=== PATIENT | female | born 1990 | race Caucasian/White ===

== ENCOUNTER → 2019-05-20 | Outpatient (REF) | payer OTHER ==
[2019-05-20 13:14] LABS: APPEARANCE, URINE CLEAR (CLEAR); BACTERIA, URINE AUTO NEGATIVE (NEGATIVE); BILIRUBIN, URINE AUTO NEGATIVE (NEGATIVE); BLOOD, URINE BLOOD 2+ (NEGATIVE); COLOR, URINE YELLOW (YELLOW); GLUCOSE, URINE (UA) AUTO NEGATIVE (NEGATIVE); KETONE, URINE AUTO NEGATIVE (NEGATIVE); LEUKOCYTE ESTERASE, URINE AUTO NEGATIVE (NEGATIVE); MUCUS, URINE SMALL (NEGATIVE); NITRITE, URINE AUTO NEGATIVE (NEGATIVE); PROTEIN, URINE AUTO NEGATIVE (NEGATIVE); RBC, URINE AUTO 7 /HPF (0-3); SPECIFIC GRAVITY URINE AUTO 1.018 (1.002-1.035); SQUAMOUS EPITHELIAL CELL UR AU 1 /HPF (0-6); UROBILINOGEN, URINE AUTO 0.2 mg/dL (0.0-2.0); WBC, URINE AUTO 0 /HPF (0-3)
== END ==
LOC: M SMT 12:42
PROVIDERS: ATTEND Nurse Practitioner Family
DX: R31.21 Asymptomatic microscopic hematuria (principal); R35.0 Frequency of micturition

== ENCOUNTER → 2020-12-11 | Outpatient (CLI) | payer OTHER ==
[~2020-12-11] MED LIST: HYDR50TA70; OXYB10TA23; PROBCAP14 PO; SERT50TA29
== END ==
LOC: M LABSMTC 10:00
PROVIDERS: ATTEND Anesthesiology
DX: Z01.812 Encounter for preprocedural laboratory examination (principal); Z11.52 Encounter for screening for COVID-19

== ENCOUNTER 2020-12-16 12:02 | Day surgery (SDC) | payer OTHER ==
[~2020-12-16] VITALS: Ht 160 cm; Wt 54.6 kg
[~2020-12-16 12:02] MED LIST changes: +LIDOCAINE 1% MDV 20ML VIAL SQ PRN; +LR 1,000 ML IV ONE; +ceFAZolin SOD 2 GM in IV 1 EA IV ONE
[2020-12-16] MEDS ORDERED: dexameTHASONE 4 MG/ML 1ML VIAL (J1100 PER 1MG) As Ordered ONE (14:43)
[2020-12-16] MEDS ORDERED: fentaNYL 100 MCG/2 ML INJECTION (J3010) As Ordered ONE (14:43)
[2020-12-16] MEDS ORDERED: LIDOCAINE 2% 100MG/5ML SDV (FOR ANES.) As Ordered ONE (14:43)
[2020-12-16] MEDS ORDERED: ONDANSETRON 4MG/2ML VIAL As Ordered ONE (14:43)
[2020-12-16] MEDS ORDERED: MIDAZOLAM INJ 2MG/2ML VIAL (J2250 PER 1MG) As Ordered ONE (14:43)
[2020-12-16] MEDS ORDERED: propofoL 200 MG/20 ML VIAL As Ordered ONE ×2 (14:43→15:36)
[2020-12-16] MEDS ORDERED: LIDOCAINE 1% MDV 50ML VIAL As Ordered ONE (15:04)
[2020-12-16] MEDS ORDERED: LIDOCAINE 2% 5ML JELLY UROJET As Ordered ONE (15:04)
[2020-12-16] MEDS ORDERED: LIDOCAINE 1% SDV 30ML VIAL As Ordered ONE (15:26)
[2020-12-16] MEDS ORDERED: KETOROLAC 60MG 2ML VIAL As Ordered ONE (15:45)
--- NOTE | 2020-12-16 16:07 | ROOPDOC ---
[facility] Report Of Operation Report of Operation DATE OF PROCEDURE: 12/16/20 PREPROCEDURE DIAGNOSES: Interstitial Cystitis with urinary urgency, frequency, nocturia, dyspaurenia, chronic pelvic pain POSTPROCEDURE DIAGNOSES: Same PROCEDURE: Cystoscopy, hydrodistention, bladder biopsies, extensive fulguration of Hunner's ulcerations, and intravaginal lidocaine SURGEON: Lisa Artis MD POWER PRESS SUPERVISOR: None ANESTHESIA: IV sedation ESTIMATED BLOOD LOSS: Minimal COMPLICATIONS: None REMARKS: Severe glomerulations and areas of Hunner's ulcerations in the bladder PROCEDURE NOTE: The patient is a 30-year-old female with interstitial cystitis unable to tolerate Elmiron because of abdominal issues. She complains of severe urinary urgency, frequency, nocturia, lower abdominal pain and pressure, dyspareunia, chronic pelvic pain, and incontinence. After discussing all different options, alternatives, risks, benefits it was decided to bring her to the operating room but she did not want to have intravesical Botox because she had difficulty emptying during the urodynamic studies. DESCRIPTION OF PROCEDURE: The patient was brought into the operating room. Sequential compression devices were in place and preoperative antibiotics had been given. Anesthesia was induced. She was then placed in the lithotomy position and careful attention was paid that her pressure points were well- padded and protected. She was prepped and draped in the usual fashion. A 21 [place]ian cystoscope was inserted. The urethra was noted to be open without any evidence of lesions or strictures. Upon entering the bladder both ureteral orifices were seen. Originally the bladder lining appeared to be normal. The bladder was then filled with normal saline and her bladder capacity under anesthesia was 700 mL. She was left distended for a total of 10 minutes and when the bladder was emptied she had significant bloody reflux, glomerulation, and findings of Hunner's ulcerations. A second distention was done. The water source was then turned to sterile water and several bladder biopsies were done. These areas were then fulgurated along with fulguration of Hunner's ulcerations. A red rubber catheter was placed and 1% lidocaine 30 mL was mixed with lidocaine jelly and placed in the bladder for postoperative pain control. On examination her levator ani muscles were stone spasm in the vaginal region so lidocaine 1% was injected into the levator ani muscles in the vaginal vault bilaterally with about 1 mL injections each with a total injection of 20 mL of lidocaine. We will see if this helps with some of her chronic pelvic pain and dyspareunia. The patient tolerated the procedure well was returned to the recovery room in stable condition. LISA ARTIS MD Dec 16, 2020 16:07
[2020-12-16] MEDS ORDERED: BELLADONNA 16.2mg/OPIUM 60mg 1 EA SUPP PR PRN (17:05)
[2020-12-16] MEDS ORDERED: BELLADONNA 16.2mg/OPIUM 60mg 1 EA SUPP PR SCH (17:25)
[2020-12-16] MEDS ORDERED: LR 1,000 ML IV SCH (17:40)
[2020-12-16] MEDS ORDERED: METOCLOPRAMIDE INJ 10MG/2ML VIAL (J2765 PER 1) IV PRN (17:40)
[2020-12-16] MEDS ORDERED: PERCOCET 5MG/325MG TAB PO PRN (17:40)
[2020-12-16] MEDS ORDERED: ONDANSETRON 4MG/2ML VIAL IV PRN (17:40)
== END 2020-12-16 18:50 | disposition home or self-care (01) ==
LOC: M SDC 12:02
PROVIDERS: ATTEND Specialist
DX: N30.11 Interstitial cystitis (chronic) with hematuria (principal); R35.0 Frequency of micturition; R39.15 Urgency of urination; R35.1 Nocturia; N94.10 Unspecified dyspareunia; R10.2 Pelvic and perineal pain; N20.0 Calculus of kidney; R31.1 Benign essential microscopic hematuria
CPT/HCPCS: 20552; 52224; 52265; 81025; 88305; J0690; J1100; J1885; J2250; J2405; J3010

== ENCOUNTER 2021-07-19 11:49 | Day surgery (SDC) | payer OTHER ==
[~2021-07-19] VITALS: Ht 160 cm; Wt 58.1 kg
[~2021-07-19 11:49] MED LIST changes: -LIDOCAINE 1% MDV 20ML VIAL SQ PRN; -ceFAZolin SOD 2 GM in IV 1 EA IV ONE
--- OUTSIDE RECORDS SUMMARY | 2021-07-19 11:54 | CCD ---
Author Author [facility] Organization [facility] [employer] Address Unknown Phone Unavailable Care Team Providers Care Frozen Foods Manager Name Role Phone Jayda Garcia Unavailable PROBLEMS Type Condition ICD9-CM Code [id number] Code Onset Dates Condition S tatus W/U Status Risk SNOMED Code Notes Problem Kidney stone N20.0 Active confirmed 7417832 7 Problem Urinary frequency R35.0 Active confirmed 16 7871952 Problem Asymptomatic microscopic hematuria R31.21 Activ e confirmed [id number] ALLERGIES Allergen (clinical drug ingredient) Drug/Non Drug Allergy do cumented on EMR Reaction Allergy Type Onset Date Status Clindamycin Phos & Cleanser Unknown Drug Allergy Active ENCOUNTERS from 1992 to 2021-06-29 Encounter Location Date Provider Diagnosis [facility] Urology [address] [phone] [place] [address] Jun, Jayda Garcia Urinary frequency R35.0 ; Cystitis N30.9 0 and Pre-op testing Z01.818 IMMUNIZATIONS No Information SOCIAL HISTORY Sex Assigned At : Social History Observation Description Sex Assigned At Unknown Language: Question Answer Notes Languages spoken: Turkish Church: Question Answer Notes Church No pentecostalism beliefs that would impact health care. Domestic Violence: Question Answer Notes Status: Single Sexual Hx: Question Answer Notes Had sex in the last 12 months (vaginal, oral, or anal)? Yes LMP: 05/2019 Have you ever had an STD? No with Men only Use protection? No Alcohol Screening: Question Answer Notes Did you have a drink containing alcohol in the past year? No Points 0 Interpretation Negative REASON FOR REFERRAL No Information VITAL SIGNS Weight 126 lbs Jun, Weight-kg 57.15 kg Jun, Height 63 in Jun, BMI 22.32 kg/m2 Jun, Heart Rate 72 /min Jun, Respiratory Rate 18 /min Jun, Temperature 97.0 degrees Fahrenheit Jun, Oximetry 97% Jun, Blood pressure systolic 122 mm Hg Jun, Blood pressure diastolic 64 mm Hg Jun, MEDICATIONS Medication SIG (Take, Route, Frequency, Duration) Notes Start Da te End Date Status Elmiron 100 MG 1 capsule on an empty stomac h Orally Three times a day for 90 days Aug, Not-Taking Probiotic - as directed Orally Activ e Bactrim DS 800-160 MG 1 tablet Orally Twice a day x 10 days Not-Taking Bactrim DS 800-160 MG 1 tablet 1 hour prior to you r cystoscopy Orally Once for 1 days May, Not-Taking Zoloft 50 MG 1 tablet Orally Once a day for 30 day(s) Active Oxybutynin Chloride ER 10 MG 1 tablet Orally Once a day for 90 days Active Pyridium 100 MG 1 tablet after meals Orally Three times a day as needed for burning sensation for 30 days prn Aug, Ac tive hydrOXYzine HCl 50 MG 1 tablet Orally before bedtime for 90 days Active NexIUM 20 MG 1 capsule Orally Once a day for 30 day(s) Not-Taking PROCEDURES No Information RESULTS No Results REASON FOR VISIT sign consent for cysto, hydrodistention for Dr. Wen in July MEDICAL (GENERAL) HISTORY Type Description Date Medical History urinary frequency Surgical History oral surgery 4 years ago Surgical History cystoscopy 06/2019 Surgical History cysto, hydrodistention Hospitalization History childbirth Goals Section No Information Health Concerns No Information MEDICAL EQUIPMENT No Information MENTAL STATUS No Information FUNCTIONAL STATUS No Information ASSESSMENTS Encounter Date Diagnosis Assessment Notes Treatment Notes Treatm ent Clinical Notes Jun, Urinary frequency (ICD-10 - R35.0) Jun, Cystitis (ICD-10 - N30.90) Jun, Pre-op testing (ICD-10 - Z01.818) PLAN OF TREATMENT Future Test Test Name Order Date Basic Metabolic Profile (BMP) [id number] CBC - Complete Blood Count [id number] HCG SERUM QUALITATIVE [id number] PT & APTT [id number] URINE CULTURE [id number] UA URINALYSIS [id number] Next Appt Details OR Reason: Provider Name:Jayda Garcia, 2021-07-19 3 01:30:00 PM, [id number], , [place], [address], Insurance Providers Payer Name Payer Address Payer Phone Insured Name Patient Relati onship to Insured Coverage Start Date Coverage End Date [facility] CLAIM[facility] DEPT [address] [facility] [phone] EFRAIN HOPKINS
--- OUTSIDE RECORDS SUMMARY | 2021-07-19 11:54 | CCD ---
Author Author [facility] Organization [facility] Address Unknown Phone Unavailable Care Team Providers Care Home Health Outreach Coordinator Name Role Phone Lisa Wen Unavailable PROBLEMS Type Condition ICD9-CM Code [id number] Code Onset Dates Condition S tatus W/U Status Risk SNOMED Code Notes Problem Kidney stone N20.0 Active confirmed 0636946 7 Problem Urinary frequency R35.0 Active confirmed 16 5658440 Problem Asymptomatic microscopic hematuria R31.21 Activ e confirmed [id number] ALLERGIES Allergen (clinical drug ingredient) Drug/Non Drug Allergy do cumented on EMR Reaction Allergy Type Onset Date Status Clindamycin Phos & Cleanser Unknown Drug Allergy Active ENCOUNTERS from 1992 to 2021-07-12 Encounter Location Date Provider Diagnosis [facility] Urology [address] [phone] [place] [address] Jun, Lisa Wen Pre-op testing Z01.818 IMMUNIZATIONS No Information SOCIAL HISTORY Sex Assigned At : Social History Observation Description Sex Assigned At Unknown Language: Question Answer Notes Languages spoken: Mohawk Sikhism: Question Answer Notes Sikhism No bahai beliefs that would impact health care. Domestic [...] REASON FOR REFERRAL No Information VITAL SIGNS No information MEDICATIONS Medication SIG (Take, Route, Frequency, Duration) Notes Start Da te End Date Status Elmiron 100 MG 1 capsule on an empty stomac h Orally Three times a day for 90 days 20 Darrin, 2020 Not-Taking Probiotic - as directed Orally Activ [...] Information RESULTS No Results REASON FOR VISIT COVID ORDER MEDICAL (GENERAL) HISTORY Type Description Date Medical History urinary frequency Surgical History oral surgery 4 years ago Surgical History cystoscopy 06/2019 Surgical History cysto, hydrodistention Hospitalization History childbirth Goals Section No Information Health Concerns No Information MEDICAL EQUIPMENT No Information MENTAL STATUS No Information FUNCTIONAL STATUS No Information ASSESSMENTS Encounter Date Diagnosis Assessment Notes Treatment Notes Treatm ent Clinical Notes Jun, Pre-op testing (ICD-10 - Z01.818) PLAN OF TREATMENT Future Test Test Name Order Date Coronavirus SARS COVID-19 Amplification (In-House Hosp ital Order) COVID [id number] Next Appt Details Provider Name:Jayda Colvin Radha, 2021-07-2 2 02:00:00 PM, [id number], , [place], [address], Insurance Providers Payer Name Payer Address Payer Phone Insured Name Patient Relati onship to Insured Coverage Start Date Coverage End Date [facility] [employer] CLAIM[facility] DEPT [address] [place] [phone] EFRAIN [place]OPKINS
--- OUTSIDE RECORDS SUMMARY | 2021-07-19 11:54 | CCD ---
Author Author [facility] Organization [facility] Address Unknown Phone Unavailable Care Team Providers Care Maintenance Shop Technician Name Role Phone SWINWOOD, GUCCI BOX LINING MACHINE OPERATOR Unavailable Unavailable SWINWOOD, GUCCI BOX LINING MACHINE OPERATOR Unavailable Unavailable SWINWOOD, GUCCI BOX LINING MACHINE OPERATOR Unavailable Unavailable SWINWOOD, GUCCI BOX LINING MACHINE OPERATOR Unavailable Unavailable SWINWOOD, GUCCI BOX LINING MACHINE OPERATOR Unavailable Unavailable SWINWOOD, GUCCI BOX LINING MACHINE OPERATOR Unavailable Unavailable SWINWOOD, GUCCI BOX LINING MACHINE OPERATOR Unavailable Unavailable SWINWOOD, GUCCI BOX LINING MACHINE OPERATOR Unavailable Unavailable SWINWOOD, GUCCI BOX LINING MACHINE OPERATOR Unavailable Unavailable SWINWOOD, GUCCI BOX LINING MACHINE OPERATOR Unavailable Unavailable SWINWOOD, GUCCI BOX LINING MACHINE OPERATOR Unavailable Unavailable SWINWOOD, GUCCI BOX LINING MACHINE OPERATOR Unavailable Unavailable SWINWOOD, GUCCI BOX LINING MACHINE OPERATOR Unavailable Unavailable SWINWOOD, GUCCI BOX LINING MACHINE OPERATOR Unavailable Unavailable SWINWOOD, GUCCI BOX LINING MACHINE OPERATOR Unavailable Unavailable SWINWOOD, GUCCI BOX LINING MACHINE OPERATOR Unavailable Unavailable SWINWOOD, GUCCI BOX LINING MACHINE OPERATOR Unavailable Unavailable SWINWOOD, GUCCI BOX LINING MACHINE OPERATOR Unavailable Unavailable SWINWOOD, GUCCI BOX LINING MACHINE OPERATOR Unavailable Unavailable SWINWOOD, GUCCI BOX LINING MACHINE OPERATOR Unavailable Unavailable SWINWOOD, GUCCI BOX LINING MACHINE OPERATOR Unavailable Unavailable Recore, Jayda Silvia WHNP Unavailable Unavailable Recore, Jayda Silvia WHNP Unavailable Unavailable Recore, Jayda Silvia WHNP Unavailable Unavailable Recore, Jayda Silvia WHNP Unavailable Unavailable Recore, Jayda Silvia WHNP Unavailable Unavailable Recore, Jayda Silvia WHNP Unavailable Unavailable Recore, Jayda Silvia WHNP Unavailable Unavailable Recore, Jayda Silvia WHNP Unavailable Unavailable Recore, Jayda Silvia WHNP Unavailable Unavailable Recore, Jayda Silvia WHNP Unavailable Unavailable Recore, Jayda Silvia WHNP Unavailable Unavailable Recore, Jayda Silvia WHNP Unavailable Unavailable Recore, Jayda Silvia WHNP Unavailable Unavailable Recore, Jayda Silvia WHNP Unavailable Unavailable Recore, Jayda Silvia WHNP Unavailable Unavailable Recore, Jayda Silvia WHNP Unavailable Unavailable Recore, Jayda Silvia WHNP Unavailable Unavailable Recore, Jayda Silvia WHNP Unavailable Unavailable Recore, Jayda Silvia WHNP Unavailable Unavailable Recore, Jayda Silvia WHNP Unavailable Unavailable Recore, Jayda Silvia WHNP Unavailable Unavailable Recore, Jayda Silvia WHNP Unavailable Unavailable Recore, Jayda Silvia WHNP Unavailable Unavailable Recore, Jayda Silvia WHNP Unavailable Unavailable Recore, Jayda Silvia WHNP Unavailable Unavailable Recore, Jayda Silvia WHNP Unavailable Unavailable Recore, Jayda Silvia WHNP Unavailable Unavailable Recore, Jayda Silvia WHNP Unavailable Unavailable Recore, Jayda Silvia WHNP Unavailable Unavailable Recore, Jayda Silvia WHNP Unavailable Unavailable Recore, Jayda Silvia WHNP Unavailable Unavailable Deng ARTIS MD Unavailable Unavailable Deng ARTIS MD Unavailable Unavailable Deng ARTIS MD Unavailable Unavailable Deng ARTIS MD Unavailable Unavailable Deng ARTIS MD Unavailable Unavailable Deng ARTIS MD Unavailable Unavailable Deng ARTIS MD Unavailable Unavailable Deng ARTIS MD Unavailable Unavailable Deng ARTIS MD Unavailable Unavailable Deng ARTIS MD Unavailable Unavailable Deng ARTIS MD Unavailable Unavailable Deng ARTIS MD Unavailable Unavailable Deng ARTIS MD Unavailable Unavailable Deng ARTIS MD Unavailable Unavailable Deng ARTIS MD Unavailable Unavailable Deng ARTIS MD Unavailable Unavailable Deng ARTIS MD Unavailable Unavailable CHANDRADeng MD Unavailable Unavailable CHANDRADeng MD Unavailable Unavailable CHANDRADeng MD Unavailable Unavailable CHANDRADeng MD Unavailable Unavailable CHANDRA, Deng OBREGON MD Unavailable Unavailable CHANDRADeng MD Unavailable Unavailable CHANDRADeng MD Unavailable Unavailable Jayda L Recore, WRNP Unavailable Unavailable MARIO, Addy MENDEZ MD Unavailable Unavailable MARIO, Addy MENDEZ MD Unavailable Unavailable MARIO, Addy MENDEZ MD Unavailable Unavailable MARIO, Addy MENDEZ MD Unavailable Unavailable MARIO, Addy MENDEZ MD Unavailable Unavailable MARIO, Addy MENDEZ MD Unavailable Unavailable MARIO, Addy MENDEZ MD Unavailable Unavailable MARIO, Addy MENDEZ MD Unavailable Unavailable MARIO, Addy MENDEZ MD Unavailable Unavailable MARIO, Addy MENDEZ MD Unavailable Unavailable MARIO, Addy MENDEZ MD Unavailable Unavailable MARIO, Addy MENDEZ MD Unavailable Unavailable MARIO, Addy MENDEZ MD Unavailable Unavailable MARIO, Addy MENDEZ MD Unavailable Unavailable MARIO, Addy MENDEZ MD Unavailable Unavailable MARIO, Addy MENDEZ MD Unavailable Unavailable MARIO, Addy MENDEZ MD Unavailable Unavailable MARIO, Addy MENDEZ MD Unavailable Unavailable MARIO, Addy MENDEZ MD Unavailable Unavailable MARIO, Addy MENDEZ MD Unavailable Unavailable MARIO, Addy MENDEZ MD Unavailable Unavailable MARIO, Addy MENDEZ MD Unavailable Unavailable MARIO, Addy MENDEZ MD Unavailable Unavailable MARIO, Addy MENDEZ MD Unavailable Unavailable MARIO, Addy MENDEZ MD Unavailable Unavailable MARIO, Addy MENDEZ MD Unavailable Unavailable MARIOAddy MD Unavailable Unavailable MARIOAddy MD Unavailable Unavailable MARIOAddy MD Unavailable Unavailable MARIO, Addy MENDEZ MD Unavailable Unavailable MARIO, Addy MENDEZ MD Unavailable Unavailable MARIO, Addy MENDEZ MD Unavailable Unavailable MARIO, Addy MENDEZ MD Unavailable Unavailable MARIOAddy MD Unavailable Unavailable MARIO, Addy MENDEZ MD Unavailable Unavailable MARIO, Addy MENDEZ MD Unavailable Unavailable MARIO, Addy MENDEZ MD Unavailable Unavailable MARIO, Addy MENDEZ MD Unavailable Unavailable MARIO, Addy MENDEZ MD Unavailable Unavailable MARIO, Addy MENDEZ MD Unavailable Unavailable MARIO, Addy MENDEZ MD Unavailable Unavailable MARIOAddy MD Unavailable Unavailable MARIOAddy MD Unavailable Unavailable MARIOAddy MD Unavailable Unavailable MARIO, Addy MENDEZ MD Unavailable Unavailable MARIO, Addy MENDEZ MD Unavailable Unavailable MARIO, Addy MENDEZ MD Unavailable Unavailable MARIO, Addy MENDEZ MD Unavailable Unavailable MARIO, Addy MENDEZ MD Unavailable Unavailable MARIO, Addy MENDEZ MD Unavailable Unavailable MARIO, J VANESSA VIERA Unavailable Unavailable MARIO, J VANESSA VIERA Unavailable Unavailable MARIO, Addy MENDEZ MD Unavailable Unavailable MARIO, Addy MENDEZ MD Unavailable Unavailable MARIO, Addy MENDEZ MD Unavailable Unavailable MARIO, Addy MENDEZ MD Unavailable Unavailable MARIO, Addy MENDEZ MD Unavailable Unavailable MARIO, Addy MENDEZ MD Unavailable Unavailable MARIO, Addy MENDEZ MD Unavailable Unavailable MARIO, Addy MENDEZ MD Unavailable Unavailable MARIO, J VANESSA VIERA Unavailable Unavailable MARIO, Addy MENDEZ MD Unavailable Unavailable MARIO, Addy MENDEZ MD Unavailable Unavailable MARIO, J VANESSA VIERA Unavailable Unavailable MARIO, J VANESSA VIERA Unavailable Unavailable MARIO, J VANESSA MD Unavailable Unavailable MARIO, J VANESSA MD Unavailable Unavailable MARIO, J VANESSA VIERA Unavailable Unavailable MARIO, J VANESSA VIERA Unavailable Unavailable MARIO, J VANESSA VIERA Unavailable Unavailable MARIO, J VANESSA VIERA Unavailable Unavailable MARIO, J VANESSA VIERA Unavailable Unavailable MARIO, J VANESSA VIERA Unavailable Unavailable MARIO, J VANESSA VIERA Unavailable Unavailable MARIO, J VANESSA VIERA Unavailable Unavailable MARIO, J VANESSA VIERA Unavailable Unavailable MARIO, J VANESSA VIERA Unavailable Unavailable MARIO, J VANESSA VIERA Unavailable Unavailable UNKNOWN Unavailable Unavailable Leykin, Gregory DO Unavailable Unavailable Leykin, Gregory DO Unavailable Unavailable Re-disclosure Warning The records that you are about to access may contain information from federally-assisted alcohol or drug abuse programs. If such information is present, then the following federally mandated warning applies: This information has been disclosed to you from records protected by federal confidentiality rules (42 CFR part 2). The federal rules prohibit you from making any further disclosure of this information unless further disclosure is expressly permitted by the written consent of the person to whom it pertains or as otherwise permitted by 42 CFR part 2. A general authorization for the release of medical or other information is NOT sufficient for this purpose. The Federal rules restrict any use of the information to criminally investigate or prosecute any alcohol or drug abuse patient.The records that you are about to access may contain highly sensitive health information, the redisclosure of which is protected by Article 27-F of the [facility] Public Health law. If you continue you may have access to information: Regarding HIV / AIDS; Provided by facilities licensed or operated by the [facility] Office of Mental Health; or Provided by the [facility] Office for People With Developmental Disabilities. If such information is present, then the following [facility] mandated warning applies: This information has been disclosed to you from confidential records which are protected by state law. State law prohibits you from making any further disclosure of this information without the specific written consent of the person to whom it pertains, or as otherwise permitted by law. Any unauthorized further disclosure in violation of state law may result in a fine or care home sentence or both. A general authorization for the release of medical or other information is NOT sufficient authorization for further disc losure. Encounters Encounter Providers Location Date Indications Data Source(s ) [facility]: [facility] 02:51:00 PM E [facility] Outpatient Attender: MINDI ARTIS MD -LABCOV 06/20 11:29:00 AM EST - 07/14/2021 11:30:00 AM EST Z01.812 [facility] Z01.812 [facility] 08:09:00 PM [facility] Outpatient Attender: GISELA PaulreAttender: Jayda Garcia [facility] 07/12/2021 03:28:00 PM EST - 07/12/2021 03:29:00 PM ES T R32.0 N30.90 Z01.818 [facility] R32.0 N30.90 Z01.818 Patient discharged. Unknown [address] [facility] [address] 07/11/2021 12:00:00 AM EST [facility] [place] [address] [address] 06/27/2021 12:00:00 AM EST eCW1 ([facility]) Outpatient [address] [place] [address] 04/04/2021 12:00:00 AM EDT eCW1 ([facility]) Outpatient Attender: VANESSA MARTIN MD CPSCAORT-LABPNP 02/17 09:17:00 AM EDT - 03/14/2021 09:18:00 AM EDT COVID SCREENING [facility] COVID SCREENING Patient discharged. [place] [address] [facility] [address] 02/13/2021 12:00:00 AM EDT eCW1 ([facility]) [place] [address] [facility] [address] 01/27/2021 12:00:00 AM EDT eCW1 ([facility]) Unknown [address] [facility] [address] 12/26/2020 12:00:00 AM EDT eCW1 ([facility]) Unknown [address] [facility] [address] 12/16/2020 12:00:00 AM EDT eCW1 ([facility]) Outpatient CPSCAORT-LABEJN 12/12/2020 02:44:00 PM EDT [facility] Outpatient Attender: GISELA Colvin RecoreAttender: Jayda Garcia [facility] ED-LAB 12/12/2020 01:02:00 PM EDT - 12/12/2020 01:03:00 PM EDT R312 1 [facility] R3121 Patient discharged. Unknown [address] [address] 12/12/2020 12:00:00 AM EDT eCW1 ([facility]) Outpatient [facility]PS[facility]ORT-LABEJN 12/08/2020 08:14:00 PM EDT [facility] Outpatient Attender: MINDI ARTIS MD ED-LAB 11/18 03:47:00 PM EDT - 12/08/2020 03:48:00 PM EDT N3090 [facility] N3090 Patient discharged. Outpatient [address] [address] 11/28/2020 12:00:00 AM EDT [facility]CW[facility] [place] [address] [facility] [address] 11/11/2020 12:00:00 AM EDT [facility]CW1 [facility] [place] [address] [address] 10/20/2020 12:00:00 AM EST [facility]CW1 [facility] Unknown [address] [facility] [address] 10/10/2020 12:00:00 AM EST [facility]CW1 [facility] Outpatient [address] [place] [address] 10/05/2020 12:00:00 AM EST eCW1 ([facility]) Outpatient [address] [place] [address] 10/04/2020 12:00:00 AM EST [facility] Outpatient Attender: VANESSA MARTIN MD CPSCAORT-LABCOVEJN 0 08/26/2020 11:57:00 AM EST - 08/26/2020 11:58:00 AM EST COVID TEST [facility] COVID TEST Patient discharged. Outpatient Attender: GUCCI ANTONIO NP CPSCAORT-CPSCNOBG 09:20:00 AM EST - 08/17/2020 09:21: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 Outpatient Attender: VANESSA GAMEZ-LABPNP 07/19 09:49:00 PM EST - 08/01/2020 09:50:00 PM EST [facility] Patient discharged. Outpatient [address] [place] [address] 07/19/2020 12:00:00 AM EST eCW1 ([facility]) Outpatient Attender: VANESSA BALDWIN 06/21 01:11:00 PM EST SUSPECTED EXPOSURE COVID SCREENING [facility] SUSPECTED EXPOSURE COVID SCREENING Outpatient Attender: VANESSA BALDWIN 06/19 12:09:00 PM EST - 07/04/2020 12:10:00 PM EST SUSPECTED EXPOSURE; COVID 19 SCREEN [facility] SUSPECTED EXPOSURE; COVID 19 SCREEN Patient discharged. Outpatient Attender: VANESSA BALDWIN 04/20 02:00:00 PM EDT - 05/16/2020 02:01:00 PM EDT [facility] Patient discharged. Outpatient Attender: VANESSA BALDWIN 04/19 01:30:00 PM EDT - 05/06/2020 01:31:00 PM EDT SUSPECTED EXPOSURE COVID SCREENING [facility] SUSPECTED EXPOSURE COVID SCREENING Patient discharged. Outpatient Attender: VANESSA BALDWIN 04/19 05:21:00 PM EDT - 04/29/2020 05:22:00 PM EDT SUSPECTED COVID19 EXPOSURE [facility] SUSPECTED COVID19 EXPOSURE Patient discharged. Outpatient Attender: VANESSA BALDWIN 03/21 12:20:00 PM EDT - 04/18/2020 12:21:00 PM EDT SUSPECTED EXPOSURE COVID 19 SCREEN [facility] SUSPECTED EXPOSURE COVID 19 SCREEN Patient discharged. Outpatient Attender: VANESSA BALDWIN 03/20 12:47:00 PM EDT - 04/11/2020 12:48:00 PM EDT SUSPECTED EXPOSURE COVID 19 SCREEN [facility] SUSPECTED EXPOSURE COVID 19 SCREEN Patient discharged. Outpatient Attender: VANESSA BALDWIN 12/2019 10:57:00 AM EDT - 03/23/2020 10:58:00 AM EDT SUSPECTED EXPOSURE [facility] SUSPECTED EXPOSURE Patient discharged. Outpatient Attender: VANESSA BALDWIN 02/17 12:26:00 PM EDT - 03/14/2020 12:27:00 PM EDT COVID 19 SCREENING [facility] COVID 19 SCREENING Patient discharged. Outpatient Attender: VANESSA BALDWIN 02/17 01:00:00 PM EDT - 03/10/2020 01:01:00 PM EDT SUSPRCTED COVID 19 [facility] SUSPRCTED COVID 19 Patient discharged. Outpatient Attender: VANESSA BALDWIN 02/17 01:00:00 PM EDT - 03/07/2020 01:01:00 PM EDT COID 19 SCREENING [facility] COID 19 SCREENING Patient discharged. Outpatient Attender: VANESSA GAMEZ-LABSARA 01/18 02:00:00 PM EDT - 02/12/2020 02:01:00 PM EDT COVID 19 SCREENING [facility] COVID 19 SCREENING Patient discharged. 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 Outpatient Attender: VANESSA GAMEZ-LABDUARTEP 11/18 10:24:00 PM EDT - 12/11/2019 10:25:00 PM EDT COVID 19 SCREENING [facility] COVID 19 SCREENING Patient discharged. Emergency Attender: Gregory Quintero DOAttender: Gregory chery DO CPSCAORT-ED 02/14/2019 11:26:00 AM EDT - 02/14/2019 01:03:00 PM EDT CHEST PAIN [facility] CHEST PAIN Immunizations Vaccine Date Status Description Data Source(s) COVID-19 VACCINE Pfizer 06/29/2021 12:00:00 AM EST completed [facility] Vaccine Series Complete: NOThis Data was Submitted to [place] [facility]. Medications Medication Brand Name Start Date Product Form Dose Route Admi nistrative Instructions Pharmacy Instructions Status Indications Reaction Description Data Source(s) 50 mg 04/14/2021 12:00:00 AM EDT tablet 90 TAKE ONE AND ONE-HALF TABLETS BY MOUTH EVERY DAY TAKE ONE AND ONE-HALF TABLETS BY MOUTH EVERY DAY SOLD: 04/14/2021 [facility] 50 mg 02/13/2021 12:00:00 AM EDT tablet 30 TAKE ONE TABLET BY MOUTH BEFORE BEDTIME TAKE ONE TABLET BY MOUTH BEFORE BEDTIME SOLD: 06/27/2021 [facility] 50 mg 02/13/2021 12:00:00 AM EDT tablet 30 TAKE ONE TABLET BY MOUTH BEFORE BEDTIME TAKE ONE TABLET BY MOUTH BEFORE BEDTIME SOLD: 04/18/2021 [facility] 50 mg 02/13/2021 12:00:00 AM EDT tablet 30 TAKE ONE TABLET BY MOUTH BEFORE BEDTIME TAKE ONE TABLET BY MOUTH BEFORE BEDTIME SOLD: 05/19/2021 [facility] 50 mg 02/13/2021 12:00:00 AM EDT tablet 30 TAKE ONE TABLET BY MOUTH BEFORE BEDTIME TAKE ONE TABLET BY MOUTH BEFORE BEDTIME SOLD: 02/13/2021 [facility] 50 mg 02/13/2021 12:00:00 AM EDT tablet 30 TAKE ONE TABLET BY MOUTH BEFORE BEDTIME TAKE ONE TABLET BY MOUTH BEFORE BEDTIME SOLD: 03/16/2021 [facility] 10 mg 01/28/2021 12:00:00 AM EDT tablet extended release 24hr 90 TAKE ONE TABLET BY MOUTH ONCE A DAY TAKE ONE TABLET BY MOUTH ONCE A DAY SOLD: 05/11/2021 [facility] 10 mg 01/28/2021 12:00:00 AM EDT tablet extended release 24hr 90 TAKE ONE TABLET BY MOUTH ONCE A DAY TAKE ONE TABLET BY MOUTH ONCE A DAY SOLD: 02/02/2021 [facility] 100 mg 01/28/2021 12:00:00 AM EDT capsule 90 TAKE ONE CAPSULE BY MOUTH ON AN EMPTY STOMACH THREE TIMES A DAY TAKE ONE CAPSULE BY MOUTH ON AN EMPTY ST OMACH THREE TIMES A DAY SOLD: 02/02/2021 [facility] 50 mg 01/14/2021 12:00:00 AM EDT tablet 90 TAKE ONE AND ONE-HALF TABLETS BY MOUTH EVERY DAY TAKE ONE AND ONE-HALF TABLETS BY MOUTH EVERY DAY SOLD: 01/15/2021 [facility] 10 mg 10/22/2020 12:00:00 AM EST tablet extended release 24hr 90 TAKE ONE TABLET BY MOUTH EVERY DAY TAKE ONE TABLET BY MOUTH EVERY DAY SOLD: 11/09/2020 [facility] 50 mg 10/10/2020 12:00:00 AM EST tablet 30 TAKE ONE TABLET BY MOUTH BEFORE BEDTIME TAKE ONE TABLET BY MOUTH BEFORE BEDTIME SOLD: 12/14/2020 [facility] 50 mg 10/10/2020 12:00:00 AM EST tablet 30 TAKE ONE TABLET BY MOUTH BEFORE BEDTIME TAKE ONE TABLET BY MOUTH BEFORE BEDTIME SOLD: 11/13/2020 [facility] 50 mg 10/10/2020 12:00:00 AM EST tablet 30 TAKE ONE TABLET BY MOUTH BEFORE BEDTIME TAKE ONE TABLET BY MOUTH BEFORE BEDTIME SOLD: 01/14/2021 [facility] 50 mg 10/10/2020 12:00:00 AM EST tablet 30 TAKE ONE TABLET BY MOUTH BEFORE BEDTIME TAKE ONE TABLET BY MOUTH BEFORE BEDTIME SOLD: 10/10/2020 [facility] 50 mg 10/06/2020 12:00:00 AM EST tablet 45 TAKE ONE AND ONE-HALF TABLETS BY MOUTH EVERY DAY TAKE ONE AND ONE-HALF TABLETS BY MOUTH EVERY DAY SOLD: 11/30/2020 [facility] 50 mg 10/06/2020 12:00:00 AM EST tablet 45 TAKE ONE AND ONE-HALF TABLETS BY MOUTH EVERY DAY TAKE ONE AND ONE-HALF TABLETS BY MOUTH EVERY DAY SOLD: 10/10/2020 [facility] 100 mg 09/13/2020 12:00:00 AM EST capsule 10 TAKE ONE CAPSULE BY MOUTH TWICE A DAY TAKE ONE CAPSULE BY MOUTH TWICE A DAY SOLD: 09/13/2020 [facility] Sertraline 50 MG Oral Tablet SERTRALINE HCL 07/19/2020 12:00:00 AM EST tablet 90 TAKE ONE AND ONE-HALF TABLETS BY MOUTH E VERY DAY TAKE ONE AND ONE-HALF TABLETS BY MOUTH EVERY DAY SOLD: 07/19/2020 [facility] 10 mg 05/10/2020 12:00:00 AM EDT tablet extended release 24hr 90 TAKE ONE TABLET BY MOUTH EVERY DAY TAKE ONE TABLET BY MOUTH EVERY DAY SOLD: 08/10/2020 [facility] 50 mg 04/04/2020 12:00:00 AM EDT tablet 30 TAKE ONE TABLET BY MOUTH EVERY EVENING AT BEDTIME TAKE ONE TABLET BY MOUTH EVERY EVENING AT BEDTIME SOLD : 09/10/2020 [facility] 50 mg 04/04/2020 12:00:00 AM EDT tablet 30 TAKE ONE TABLET BY MOUTH EVERY EVENING AT BEDTIME TAKE ONE TABLET BY MOUTH EVERY EVENING AT BEDTIME SOLD : 06/10/2020 [facility] 50 mg 04/04/2020 12:00:00 AM EDT tablet 30 TAKE ONE TABLET BY MOUTH EVERY EVENING AT BEDTIME TAKE ONE TABLET BY MOUTH EVERY EVENING AT BEDTIME SOLD : 08/10/2020 [facility] 50 mg 04/04/2020 12:00:00 AM EDT tablet 30 TAKE ONE TABLET BY MOUTH EVERY EVENING AT BEDTIME TAKE ONE TABLET BY MOUTH EVERY EVENING AT BEDTIME SOLD : 07/11/2020 [facility] Insurance Providers Payer name Policy type / Coverage type Policy ID Covered democrat ID Covered democrat's relationship to meadows Policy [place] Plan Information [facility] [id number] F [id number] [facility] [id number] UNA [id number] MEDICAID [id number] S [id number] MEDICAID [id number] S 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 [id number] ANSI-Commercial [id number] ANSI-Commercial [id number] ANSI-Commercial [id number] ANSI-Medicaid [id number] ANSI-Commercial [id number] ANSI-Medicaid [id number] ANSI-Commercial [id number] ANSI-Commercial [id number] ANSI-Commercial [id number] ANSI-Commercial [id number] ANSI-Commercial [id number] ANSI-Commercial [id number] ANSI-Medicaid [id number] ANSI-Commercial [id number] ANSI-Commercial [id number] ANSI-Commercial [id number] ANSI-Medicaid [id number] MEDICAID [id number] 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 [id number] ANSI-Medicaid [id number] ANSI-Commercial [id number] ANSI-Commercial [id number] ANSI-Commercial [id number] ANSI-Commercial [id number] ANSI-Commercial [id number] ANSI-Medicaid [id number] ANSI-Commercial [id number] ANSI-Commercial [id number] ANSI-Commercial [id number] ANSI-Medicaid [id number] ANSI-Commercial [id number] ANSI-Commercial [id number] ANSI-Commercial [id number] ANSI-Commercial [id number] ANSI-Medicaid [id number] ANSI-Commercial [id number] ANSI-Commercial [id number] ANSI-Medicaid [id number] ANSI-Commercial [id number] ANSI-Commercial [id number] ANSI-Commercial [id number] ANSI-Commercial [id number] ANSI-Medicaid [id number] ANSI-Commercial [id number] ANSI-Medicaid [id number] ANSI-Commercial [id number] ANSI-Commercial [id number] ANSI-Commercial [id number] ANSI-Commercial [id number] ANSI-Commercial [id number] ANSI-Medicaid [id number] ANSI-Medicaid [id number] ANSI-Commercial [id number] ANSI-Commercial [id number] ANSI-Commercial [id number] [facility] [id number] UNA [id number] MEDICAID PROF FEES [id number] [facility] [id number] MEDICAID -O/P [id number] I INSURANCE -O/P [id number] [facility] [id number] [facility] [id number] UNA [id number] MEDICAID -CLINIC [id number] I INSURANCE -CLN [id number] RUSSELL [id number] R[facility]LL [facility] 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 [employer] [id number] time clock repairer emplo yed [id number] [facility] [id number] S [id number] RUSSELL [id number] Problems, Conditions, and Diagnoses Code Display Name Description Problem Type Effective Dates Data Source(s) N30.90 Cystitis, unspecified without hematuria CYSTITIS, UNSPECIFIED WITHOUT HEMATURIA Diagnosis 07/12/2021 03:28:00 PM [facility] R35.0 Frequency of micturition FREQUENCY OF MICTURITION Diag nosis 07/12/2021 03:28:00 PM [facility] Z01.818 Encounter for other preprocedural examin ation ENCOUNTER FOR OTHER PREPROCEDURAL EXAMINATION Diagnosis 07/12/2021 03:28:00 PM [facility] R31.21 Asymptomatic microscopic hematuria ASYMPTOMATIC MICROSCOPIC HEMATURIA Diagnosis 12/12/2020 01:02:00 PM [facility] Z11.59 Encounter for screening for other viral diseases ENCOUNTER FOR SCREENING FOR OTHER VIRAL DISEASES Diagnosis 08/26/2020 11:57:00 AM [facility] Z20.828 Contact with and (suspected) exposure to other viral communicable diseases CONTACT W AND EXPOSURE TO OTH VIRAL COMMUNICABLE DISEASES Di agnosis 08/10/2020 01:00:00 PM [facility] N30.10 [id number] Interstitial cystitis Problem 10/05/2020 12: 00:[address] [facility] eCW1 ([facility]) Surgeries/Procedures Procedure Description Date Indications Data Source(s) URINALYSIS MICROSCOPIC ONLY MICROSCOPIC EXAM OF URINE 2020 12:00:00 AM [facility] COLLECTION VENOUS BLOOD VENIPUNCTURE ROUTINE VENIPUNCTURE 12:00:00 AM [facility] THROMBOPLASTIN TIME PARTIAL PLASMA/WHOLE BLOOD THROMBOPLASTI N TIME PARTIAL 07/12/2021 12:00:00 AM [facility] PROTHROMBIN TIME PROTHROMBIN TIME 07/12/2021 12:00:00 AM [facility] BLOOD COUNT COMPLETE AUTO&AUTO DIFRNTL WBC COUNT COMPLETE CB C W/AUTO DIFF WBC 07/12/2021 12:00:00 AM [facility] GONADOTROPIN CHORIONIC QUANTITATIVE CHORIONIC GONADOTROPIN T EST 07/12/2021 12:00:00 AM [facility] BASIC METABOLIC PANEL CALCIUM TOTAL METABOLIC PANEL TOTAL CA 07/12/2021 12:00:00 AM [facility] C9803 Sars-cov-2 Hospital outpt clinic visit s pecimen collection 08/26/2020 12:00:00 AM [facility] 00832 SARS-COV-2 COVID-19 AMP PRB 08/26/2020 12:00:00 AM [facility] U0003 SARS-CoV-2 detection by nucleic acid 08/10/2020 12:00: 00 AM [facility] Results ID Date Data Source [id number] 07/14/2021 08:21:[address] [facility] [place] Name Value Range Interpretation Code Description Data Marilyn rce(s) Supporting Document(s) Respiratory specimen severe acute respir atory syndrome coronavirus 2 (SARS-CoV-2) RNA Negative (qualifier value) [facility] This lab was ordered by [facility] lynn and reported by [facility]. ID Date Data Source [id number] 07/15/2021 07:05:00 AM [facility] spital COVID-19 Specimen Source NASOPHARYNGEAL Name Value Range Interpretation Code Description Data Marilyn rce(s) Supporting Document(s) SARS-CoV-2 RNA PANTHER Negative Normal (applies to non-n umeric results) [facility] Testing was performed using the Aptima S ARS-CoV-2 Assay ([place] [facility]) Methodology: Nucleic Acid Amplification Metal Painter RT-PCR Mediated Amplification (TMA) and Dual Kinetic Assay (DKA) Negative results do not preclude SARS-CoV-2 infection and should not be used as the sole basis for patient management decisions. Negative results must be combined with clinical observations, patient history, and epidemiological information. This test has been authorized by FDA under an (Emergency Use Authorization) EUA for use by authorized laboratories for individuals who are suspected of COVID-19 by their healthcare provider. This test is only authorized for the duration of the declaration that circumstances exist justifying the authorization of emergency use of in vitro diagnostic tests for detection and/or diagnosis of SARS-CoV-2. Fact sheets for this EUA assay can be found at the following links EUA Fact Sheet for Providers: https://www.fda.gov/media/983537/download EUA Fact Sheet for Patients: https://www.fda.gov/media/314035/download THIS IS A STATE REPORTABLE COMMUNICABLE DISEASE. Test Performed By: [facility] [address] [place] [address] Director: Leonardo Vázquez MD ID Date Data Source [id number] 07/15/2021 04:35:00 AM [facility] COVID-19 Specimen Source NASOPHARYNGEAL Testing was performed using the Aptima SARS-CoV-2 Assay ([employer] System) Methodology: Nucleic Acid Amplification Metal Painter RT-PCR Mediated Amplification (TMA) and Dual Kinetic Assay (DKA) Negative results do not preclude SARS-CoV-2 infection and should not be used as the sole basis for patient management decisions. Negative results must be combined with clinical observations, patient history, and epidemiological information. This test has been authorized by FDA under an (Emergency Use Authorization) EUA for use by authorized laboratories for individuals who are suspected of COVID-19 by their healthcare provider. This test is only authorized for the duration of the declaration that circumstances exist justifying the authorization of emergency use of in vitro diagnostic tests for detection and/or diagnosis of SARS-CoV-2. Fact sheets for this EUA assay can be found at the following links EUA Fact Sheet for Providers: https://www.fda.gov/media/805221/download EUA Fact Sheet for Patients: https://www.fda.gov/media/234492/download THIS IS A STATE REPORTABLE COMMUNICABLE DISEASE. Test Performed By: [facility] [address] [place] [address] Director: Leonardo Vázquez MD Name Value Range Interpretation Code Description Data Marilyn rce(s) Supporting Document(s) ID Date Data Source [id number] 07/14/2021 07:55:00 AM [facility] Procedure Performed By: [facility] [address] [place] [address] Director: Abrahan Vázquez MD Name Value Range Interpretation Code Description Data Marilyn rce(s) Supporting Document(s) Urine Culture Normal (applies to non-numeric re sults) [facility] ID Date Data Source [id number] 07/12/2021 05:21:00 PM [facility] Name Value Range Interpretation Code Description Data Marilyn rce(s) Supporting Document(s) RBC,Urine None Seen [facility] WBC,Urine None Seen Normal (applies to non-numeric resul ts) [facility] Casts,Urine None Seen Normal (applies to non-numeric resu lts) [facility] Squamous Cells,Urine None Seen [facility] Bacteria,Urine None Seen [facility] Mucus,Urine None Seen [facility] l ID Date Data Source [id number] 07/12/2021 05:21:00 PM [facility] Name Value Range Interpretation Code Description Data [facility] rce(s) Supporting Document(s) Color,Urine Colorl-Dk Y Normal (applies to non-numeric res ults) [facility] Clarity,Urine Clear Normal (applies to non-numeric re sults) [facility] Specific [place],Urine 1.005-1.030 Normal (applies to non- numeric results) [facility] pH,Urine 5.0-8.0 Normal (applies to non-numeric resul ts) [facility] Protein,Urine Negative Normal (applies to non-numeric re sults) [facility] Glucose,Urine Negative Normal (applies to non-numeric re sults) [facility] Ketones,Urine Negative [facility] omari Blood,Urine Negative [facility] l Bilirubin,Urine Negative Normal (applies to non-numeric results) [facility] Urobilinogen,Urine 0.2-1.0 Normal (applies to non-numer ic results) [facility] Leukocyte Esterase,Urine Negative Normal (applies to non -numeric results) [facility] Nitrite,Urine Negative Normal (applies to non-numeric re sults) [facility] ID Date Data Source [id number] 07/12/2021 07:06:00 PM [facility] Name Value Range Interpretation Code Description Data Marilyn rce(s) Supporting Document(s) PT 9.1-10.8 Normal (applies to non-numeric results) [facility] INR Normal (applies to non-numeric results) [facility] The use of INR is restricted to patients on stable oral anticoagulant. Therapeutic Range: 2.0 - 3.0 High Risk Range: 2.5 - 3.5 ID Date Data Source [id number] 07/12/2021 07:06:00 PM [facility] Name Value Range Interpretation Code Description Data Marilyn rce(s) Supporting Document(s) PTT 23.5-34.6 Below low normal [facility] spital ID Date Data Source [id number] 07/12/2021 04:46:00 PM [facility] Name Value Range Interpretation Code Description Data Marilyn rce(s) Supporting Document(s) Sodium 140 mmol/L 136-145 Normal (applies to non-numeric resul ts) [facility] Potassium 3.5-5.1 Normal (applies to non-numeric resul ts) [facility] Chloride 102 mmol/L 98-107 Normal (applies to non-numeric resul ts) [facility] Carbon Dioxide CO2 21-32 Normal (applies to non-numer ic results) [facility] Anion Gap 5.0-16.0 Normal (applies to non-numeric resul ts) [facility] BUN 17 mg/dL 7-18 Normal (applies to non-numeric results) [facility] Creatinine,Serum 0.7-1.2 Normal (applies to non-numeric results) [facility] GFR >60 Normal (applies to non-numeric results) [facility] Glucose Level 96 mg/dL 60-99 Normal (applies to non-numeric re sults) [facility] Reference range is only applicable when patient is fasting Note the following drug interference: Sulfasalazine Sulfapyridine Can see falsely depressed Can see falsely elevated result with up to 17% results with up to 11% decrease in measurement increase in measurement Recommend patients be collected for this test prior to administration of either drug. Calcium 8.5-10.1 Normal (applies to non-numeric resul ts) [facility] ID Date Data Source [id number] 07/12/2021 04:46:00 PM EST [facility] Name Value Range Interpretation Code Description Data Marilyn rce(s) Supporting Document(s) Beta HCG,Quantitative Normal (applies to non-nu meric results) [facility] Non-preganant:0-5 mIU/mL 0. 2- Week: 5-50 mIU/mL 1-2 Weeks: 50-500 mIU/mL 2-3 Weeks: 100-5,000 mIU/mL 3-4 Weeks: 500-10,000 mIU/mL 4-5 Weeks: 1,000-50,000 mIU/mL 5-6 Weeks: 10,000-100,000 mIU/mL 6-8 Weeks: 15,000-200,000 mIU/mL 2-3 Months: 10,000-100,000 mIU/mL ID Date Data Source [id number] 07/12/2021 03:59:00 PM EST [facility] Name Value Range Interpretation Code Description Data Marilyn rce(s) Supporting Document(s) White Blood Count 3.5-10.5 Normal (applies to non-numeri c results) [facility] Red Blood Count 3.90-5.00 Normal (applies to non-numeric results) [facility] Hemoglobin 12.0-15.5 Normal (applies to non-numeric resul ts) [facility] Hematocrit 34.9-44.5 Normal (applies to non-numeric resul ts) [facility] Mean Corpuscular Volume 81.2-95.1 Normal (applies to non- numeric results) [facility] Mean Corpuscular Hgb 25.6-32.2 Normal (applies to non-num jori results) [facility] Mean Corpuscular Hgb Conc 32.0-36.0 Normal (applies to no n-numeric results) [facility] Red Cell Distribution Width 11.9-15.5 Normal (appli es to non-numeric results) [facility] Platelet Count 275 x10 3/uL 150-450 Normal (applies to non-numeric results) [facility] Mean Platelet Volume 9.4-12.4 Below low normal [facility] Neutrophils% (Auto) 31.0-71.0 Normal (applies to non-nume michelle results) [facility] Lymphocytes% (Auto) 20.0-55.0 Normal (applies to non-nume michelle results) [facility] Monocytes% (Auto) 4.0-12.0 Normal (applies to non-numeri c results) [facility] Eosinophils% (Auto) 1.0-8.0 Normal (applies to non-nume michelle results) [facility] Basophils% (Auto) 0.0-2.0 Normal (applies to non-numeri c results) [facility] Immature Granulocytes% (Auto) 0.0-2.0 Normal (javi lies to non-numeric results) [facility] Neutrophils# (Auto) 1.50-6.20 Normal (applies to non-nume michelle results) [facility] Lymphocytes# (Auto) 1.20-4.00 Normal (applies to non-nume michelle results) [facility] Monocytes# (Auto) 0.00-0.90 Normal (applies to non-numeri c results) [facility] Eosinophils# (Auto) 0.00-0.50 Normal (applies to non-nume michelle results) [facility] Basophils# (Auto) 0.00-0.20 Normal (applies to non-numeri c results) [facility] Immature Granulocytes# (Auto) 0.00-7.00 No rmal (applies to non-numeric results) [facility] ID Date Data Source [id number] 03/15/2021 06:16:00 AM EDT [place] Name Value Range Interpretation Code Description Data Marilyn rce(s) Supporting Document(s) Respiratory specimen severe acute respir atory syndrome coronavirus 2 (SARS-CoV-2) RNA Negative (qualifier value) [place] [facility] This lab was ordered by [facility] lynn and reported by [facility]. ID Date Data Source [id number] 03/15/2021 06:16:00 AM EDT [facility] COVID-19 Specimen Source NASOPHARYNGEAL Testing was performed using the Aptima SARS-CoV-2 Assay ([employer]) Methodology: Nucleic Acid Amplification Metal Painter RT-PCR Mediated Amplification (TMA) and Dual Kinetic Assay (DKA) Negative results do not preclude SARS-CoV-2 infection and should not be used as the sole basis for patient management decisions. Negative results must be combined with clinical observations, patient history, and epidemiological information. This test has been authorized by FDA under an (Emergency Use Authorization) EUA for use by authorized laboratories for individuals who are suspected of COVID-19 by their healthcare provider. This test is only authorized for the duration of the declaration that circumstances exist justifying the authorization of emergency use of in vitro diagnostic tests for detection and/or diagnosis of SARS-CoV-2. Fact sheets for this EUA assay can be found at the following links EUA Fact Sheet for Providers: https://www.fda.gov/media/193048/download EUA Fact Sheet for Patients: https://www.fda.gov/media/422892/download THIS IS A STATE REPORTABLE COMMUNICABLE DISEASE. Test Performed By: [facility] [address] [place] [address] Director: Leonardo Vázquez MD Name Value Range Interpretation Code Description Data Marilyn rce(s) Supporting Document(s) ID Date Data Source [id number] 12/14/2020 11:14:00 AM EDT [facility] spital Procedure Performed By: [facility] [address] [place] [address] Director: Abrahan Vázquez MD Name Value Range Interpretation Code Description Data Marilyn rce(s) Supporting Document(s) Urine Culture [facility] ID Date Data Source [id number] 12/12/2020 02:44:00 PM EDT [facility] Name Value Range Interpretation Code Description Data Marilyn rce(s) Supporting Document(s) Color,Urine Colorl-Dk Y Normal (applies to non-numeric res ults) [facility] Clarity,Urine Clear Normal (applies to non-numeric re sults) [facility] Specific [place],Urine 1.005-1.030 Normal (applies to non- numeric results) [facility] pH,Urine 5.0-8.0 Normal (applies to non-numeric resul ts) [facility] Protein,Urine Negative Normal (applies to non-numeric re sults) [facility] Glucose,Urine Negative Normal (applies to non-numeric re sults) [facility] Ketones,Urine Negative Normal (applies to non-numeric re sults) [facility] Blood,Urine Negative [facility] Bilirubin,Urine Negative Normal (applies to non-numeric results) [facility] Urobilinogen,Urine 0.2-1.0 Normal (applies to non-numer ic results) [facility] Leukocyte Esterase,Urine Negative Normal (applies to non -numeric results) [facility] Nitrite,Urine Negative Normal (applies to non-numeric re sults) [facility] ID Date Data Source [id number] 12/12/2020 02:44:00 PM EDT [facility] Name Value Range Interpretation Code Description Data Marilyn rce(s) Supporting Document(s) RBC,Urine None Seen Normal (applies to non-numeric resul ts) [facility] WBC,Urine None Seen Normal (applies to non-numeric resul ts) [facility] Casts,Urine None Seen Normal (applies to non-numeric resu lts) [facility] Squamous Cells,Urine None Seen [facility] Bacteria,Urine None Seen [facility] ID Date Data Source [id number] 12/14/2020 10:59:00 AM EDT [facility] Procedure Performed By: [facility] [address] [place] [address] Director: Abrahan Vázquez MD Name Value Range Interpretation Code Description Data Marilyn rce(s) Supporting Document(s) Urine Culture [facility] ospital ID Date Data Source [id number] 12/11/2020 10:00:[address] [facility] Name Value Range Interpretation Code Description Data Marilyn rce(s) Supporting Document(s) SARS-CoV-2 (COVID-19) RNA [Presence] in Respiratory specimen by CAPO with probe detection Not Detected [facility] This lab was ordered by [facility] and reported by [employer]. ID Date Data Source [id number] 12/10/2020 08:42:00 AM EDT [facility] spital Procedure Performed By: [facility] [address] [place] [address] Director: Abrahan Vázquez MD Mixed crystal: Mixed crystal, probable contamination. Name Value Range Interpretation Code Description Data Marilyn rce(s) Supporting Document(s) ID Date Data Source [id number] 12/10/2020 08:22:00 AM EDT [facility] Procedure Performed By: [facility] [address] [place] [address] Director: Abrahan Vázquez MD Name Value Range Interpretation Code Description Data Marilyn rce(s) Supporting Document(s) Urine Culture Normal (applies to non-numeric re sults) [facility] ID Date Data Source [id number] 12/08/2020 05:09:00 PM EDT [facility] Name Value Range Interpretation Code Description Data Marilyn rce(s) Supporting Document(s) Color,Urine Colorl-Dk Y Normal (applies to non-numeric res ults) [facility] Clarity,Urine Clear Normal (applies to non-numeric re sults) [facility] Specific [place],Urine 1.005-1.030 Normal (applies to non- numeric results) [facility] pH,Urine 5.0-8.0 Normal (applies to non-numeric resul ts) [facility] Protein,Urine Negative Normal (applies to non-numeric re sults) [facility] Glucose,Urine Negative Normal (applies to non-numeric re sults) [facility] Ketones,Urine Negative Normal (applies to non-numeric re sults) [facility] Blood,Urine Negative [facility] Bilirubin,Urine Negative Normal (applies to non-numeric results) [facility] Urobilinogen,Urine 0.2-1.0 Normal (applies to non-numer ic results) [facility] Leukocyte Esterase,Urine Negative Normal (applies to non -numeric results) [facility] Nitrite,Urine Negative Normal (applies to non-numeric re sults) [facility] RBC,Urine None Seen Vicente [facility] WBC,Urine None Seen Normal (applies to non-numeric resul ts) [facility] Casts,Urine None Seen Normal (applies to non-numeric resu lts) [facility] Squamous Cells,Urine None Seen [facility] Bacteria,Urine None Seen Normal (applies to non-numeric r esults) [facility] ID Date Data Source [id number] 12/08/2020 05:19:00 PM EDT [facility] Name Value Range Interpretation Code Description Data Marilyn rce(s) Supporting Document(s) Sodium 142 mmol/L 136-145 Normal (applies to non-numeric resul ts) [facility] Potassium 3.5-5.1 Normal (applies to non-numeric resul ts) [facility] Chloride 104 mmol/L 98-107 Normal (applies to non-numeric resul ts) [facility] Carbon Dioxide CO2 21-32 Normal (applies to non-numer ic results) [facility] Anion Gap 5.0-16.0 Normal (applies to non-numeric resul ts) [facility] BUN 13 mg/dL 7-18 Normal (applies to non-numeric results) [facility] Creatinine,Serum 0.7-1.2 Normal (applies to non-numeric results) [facility] GFR >60 Normal (applies to non-numeric results) [facility] Glucose Level 84 mg/dL 60-99 Normal (applies to non-numeric re sults) [facility] Reference range is only applicable when patient is fasting Note the following drug interference: Sulfasalazine Sulfapyridine Can see falsely depressed Can see falsely elevated result with up to 17% results with up to 11% decrease in measurement increase in measurement Recommend patients be collected for this test prior to administration of either drug. Calcium 8.5-10.1 Below low normal [facility] spital ID Date Data Source [id number] 12/08/2020 04:21:00 PM EDT [facility] Name Value Range Interpretation Code Description Data Marilyn rce(s) Supporting Document(s) White Blood Count 3.5-10.5 Normal (applies to non-numeri c results) [facility] Red Blood Count 3.90-5.00 Normal (applies to non-numeric results) [facility] Hemoglobin 12.0-15.5 Normal (applies to non-numeric resul ts) [facility] Hematocrit 34.9-44.5 Normal (applies to non-numeric resul ts) [facility] Mean Corpuscular Volume 81.2-95.1 Normal (applies to non- numeric results) [facility] Mean Corpuscular Hgb 25.6-32.2 Normal (applies to non-num jori results) [facility] Mean Corpuscular Hgb Conc 32.0-36.0 Normal (applies to no n-numeric results) [facility] Red Cell Distribution Width 11.9-15.5 Normal (appli es to non-numeric results) [facility] Platelet Count 300 x10 3/uL 150-450 Normal (applies to non-numeric results) [facility] Mean Platelet Volume 9.4-12.4 Below low normal [facility] Neutrophils% (Auto) 31.0-71.0 Normal (applies to non-nume michelle results) [facility] Lymphocytes% (Auto) 20.0-55.0 Normal (applies to non-nume michelle results) [facility] Monocytes% (Auto) 4.0-12.0 Normal (applies to non-numeri c results) [facility] Eosinophils% (Auto) 1.0-8.0 Normal (applies to non-nume michelle results) [facility] Basophils% (Auto) 0.0-2.0 Normal (applies to non-numeri c results) [facility] Immature Granulocytes% (Auto) 0.0-2.0 Normal (javi lies to non-numeric results) [facility] Neutrophils# (Auto) 1.50-6.20 Normal (applies to non-nume michelle results) [facility] Lymphocytes# (Auto) 1.20-4.00 Normal (applies to non-nume michelle results) [facility] Monocytes# (Auto) 0.00-0.90 Normal (applies to non-numeri c results) [facility] Eosinophils# (Auto) 0.00-0.50 Normal (applies to non-nume michelle results) [facility] Basophils# (Auto) 0.00-0.20 Normal (applies to non-numeri c results) [facility] Immature Granulocytes# (Auto) 0.00-7.00 No rmal (applies to non-numeric results) [facility] ID Date Data Source [id number] 11/10/2020 12:00:00 AM EDT [facility] Name Value Range Interpretation Code Description Data Marilyn rce(s) Supporting Document(s) SARS-CoV2 Rapid Antigen Negative [facility] This lab was ordered by [facility] and reported by [facility]. ID Date Data Source [id number] 09/02/2020 12:00:00 AM EST [facility] Name Value Range Interpretation Code Description Data Marilyn rce(s) Supporting Document(s) SARS-CoV2 Rapid Antigen Negative [facility] This lab was ordered by [facility] and reported by [facility]. ID Date Data Source [id number] 08/27/2020 02:18:00 PM EST [facility] Name Value Range Interpretation Code Description Data Marilyn rce(s) Supporting Document(s) Respiratory specimen severe acute respir atory syndrome coronavirus 2 (SARS-CoV-2) RNA Negative (qualifier value) [facility] This lab was ordered by [facility] lynn and reported by [facility]. ID Date Data Source [id number] 08/27/2020 02:18:00 PM EST [facility] THIS IS A STATE REPORTABLE COMMUNICABLE DISEASE. Testing was performed using the [employer] COVID-19 MDx Assay. This test has been authorized by FDA under an (Emergency Use Authorization) EUA for use by authorized laboratories for individuals who are suspected of COVID-19 by their healthcare provider. This test is only authorized for the duration of the declaration that circumstances exist justifying the authorization of emergency use of in vitro diagnostic tests for detection and/or diagnosis of SARS-CoV-2. Methodology: Endpoint RT-PCR. Fact sheets for this EUA assay can be found at the following links: Providers: https://www.fda.gov/media/222124/download Patients : https://www.fda.gov/media/622018/download THIS IS A [facility] REPORTABLE COMMUNICABLE DISEASE Negative results do not preclude SARS-CoV-2 infection and should not be used as the sole basis for patient management decisions. Negative results must be combined with clinical observations,patient history, and epidemiological information. Name Value Range Interpretation Code Description Data Marilyn rce(s) Supporting Document(s) ID Date Data Source [id number] 08/13/2020 01:55:00 PM EST [facility] COVID-19 Patient Ethnicity Not or LatinoCOVID-19 Patient Race WhiteCOVID-19 Specimen Source Nasopharyngeal Name Value Range Interpretation Code Description Data Marilyn rce(s) Supporting Document(s) SARS-CoV-2 RNA Undetected Normal (applies to non-numeric r esults) [facility] SARS-CoV-2 RNA absent. This result does not rule out COVID-19 in the patient, as the sensitivity of the test depends on the timing of the specimen collection and the quality of the specimen. Result should be correlated with patient's history and clinical presentation. SARS-CoV-2 RNA absent. This result does not rule out COVID-19 in the patient, as the sensitivity of the test depends on the timing of the specimen collection and the quality of the specimen. Result should be correlated with patient's history and clinical presentation. Patient Race Normal (applies to non-numeric res ults) [facility] Patient Ethnicity Normal (applies to non-numeri c results) [facility] Method Summary Normal (applies to non-numeric r esults) [facility] PKELM- This PCR test uses the twidox r New Coronavirus Nucleic Acid Detection Kit ([employer] and is performed on the Noitavonne instrument and [employer] Inotrem 7500 Fast Real-Time PCR System. It has received Emergency Use Authorization (EUA) by the U.S. Food and Drug Administration, and is modified from the matcher offbearer's instructions with a bridging study. Performance characteristics were verified by [facility] in a manner consistent with CLIA requirements. Fact sheets for this Emergency Use Authorization (EUA) can be found at the following links: https://www.fda.gov/ media/861888/download for Healthcare Providers https://www.fda.gov/media/646508/download for Patients Test Performed by: [place] [address] Broom Machine Operator: Allan Peterson M.D. Ph.D.; CLIA# [id number] TONE- This test uses the tone SARS-CoV-2 assay ([employer] and is performed on the tone 6800 System. It has received Emergency Use Authorization (EUA) by the U.S. Food and Drug Administration. Performance characteristics were verified by [facility] in a manner consistent with CLIA requirements. Fact sheets for this Emergency Use Authorization (EUA) can befound at the following links: https://www.fda.gov/media/769422/download for Healthcare Providers https://www.fda.gov/media/083816/download for Patients Test Performed by: [place] [address] Broom Machine Operator: Allan Peterson M.D. Ph.D.; CLIA# [id number] ID Date Data Source [id number] 08/10/2020 12:00:00 PM EST [facility] Name Value Range Interpretation Code Description Data Marilyn rce(s) Supporting Document(s) SARS-CoV-2 RNA Resp Ql CAPO+probe [facility] This lab was ordered by Linda bailey and reported by [facility]. ID Date Data Source [id number] 08/03/2020 05:06:00 PM EST [facility] Name Value Range Interpretation Code Description Data Marilyn rce(s) Supporting Document(s) Respiratory specimen severe acute respir atory syndrome coronavirus 2 (SARS-CoV-2) RNA [facility] This lab was ordered by Linda hongtal and reported by [facility]. ID Date Data Source [id number] 08/03/2020 05:06:00 PM [facility] COVID-19 Specimen Source NASOPHARYNGEAL Is Patient admitted or to be admitted? NFirst test? UNKNOWNEmployed in healthcare? UNKNOWNSymptomatic per CDC? UNKNOWNHospitalized? UNKNOWNICU? UNKNOWNResident in congregated care? ex detention, ARC UNKNOWN? UNKNOWN Name Value Range Interpretation Code Description Data Marilyn rce(s) Supporting Document(s) SARS-CoV-2 RNA Negative Normal (applies to non-numeric r esults) [facility] Negative results do not preclude 2019-nC oV infection and should not be used as the sole basis for treatment or other patient management decisions. Negative results must be combined with clinical observations, patient history, and epidemiological information. This test was developed and its performance characteristics determined by [facility]. It has not been cleared or approved by the US Food and Drug Administration. FDA does not require this test to go through premarket FDA review. This test is used for clinical purposes. It should not be regarded as investigational or for research. This laboratory is certified under the Clinical Laboratory Improvement Amendments (CLIA) as qualified to perform high complexity clinical laboratory testing. This test is based on the CDC COVID-19 Emergency Use Authorization (EUA) assay, with minor modification as defined by the FDA Performed on the [employer] 7 Flex. THIS IS A STATE REPORTABLE COMMUNICABLE DISEASE. 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 ex detention, ARC: U ?: U Please indicate the Triage TierN Test performed or referred by The [address] [address] ID Date Data Source [id number] 08/02/2020 04:20:00 AM [facility] Name Value Range Interpretation Code Description Data Marilyn rce(s) Supporting Document(s) SARS-CoV-2 CAPO result Not Detected Normal (applies to non- numeric results) [facility] This nucleic acid amplification test was developed and its performance characteristics determined by [facility]. Nucleic acid amplification tests include PCR and TMA. This test has not been FDA cleared or approved. This test has been authorized by FDA under an Emergency Use Authorization (EUA). This test is only authorized for the duration of time the declaration that circumstances exist justifying the authorization of the emergency use of in vitro diagnostic tests for detection of SARS-CoV-2 virus and/or diagnosis of COVID-19 infection under section 564(b)(1) of the Act, 21 U.S.C. 360bbb-3(b) (1), unless the authorization is terminated or revoked sooner. When diagnostic testing is negative, the possibility of a false negative result should be considered in the context of a patient's recent exposures and the presence of clinical signs and symptoms consistent with COVID-19. An individual without symptoms of COVID-19 and who is not shedding SARS-CoV-2 virus would expect to have a negative (not detected) result in this assay. Performed at: [facility] [address] [place] [id number] Broom Machine Operator: Lisa Ventura PhD, Phone: [phone] Testing was performed using the [employer] SARS-CoV-2 assay. This nucleic acid amplification test was developed and its performance characteristics determined by [facility]. Nucleic acid amplification tests include PCR and TMA. This test has not been FDA cleared or approved. This test has been authorized by FDA under an Emergency Use Authorization (EUA). This test is only authorized for the duration of time the declaration that circumstances exist justifying the authorization of the emergency use of in vitro diagnostic tests for detection of SARS-CoV-2 virus and/or diagnosis of COVID-19 infection under section 564(b)(1) of the Act, 21 U.S.C. 360bbb-3(b) (1), unless the authorization is terminated or revoked sooner. When diagnostic testing is negative, the possibil ity of a false negative result should be considered in the context of a patient's recent exposures and the presence of clinical signs and symptoms consistent with COVID-19. An individual without symptoms of COVID-19 and who is not shedding SARS-CoV-2 virus would expect to have a negative (not detected) result in this assay. Performed at: [facility] [id number] Broom Machine Operator: Caryn Lopez MD, Phone: [phone] ID Date Data Source [id number] 07/18/2020 12:00:00 PM EST [facility] Name Value Range Interpretation Code Description Data Marilyn rce(s) Supporting Document(s) SARS coronavirus 2 [facility] by [facility]. ID Date Data Source [id number] 08/01/2020 05:41:00 PM EST [facility] Name Value Range Interpretation Code Description Data Marilyn rce(s) Supporting Document(s) SARS-CoV-2 CAPO result Not Detected Normal (applies to non- numeric results) [facility] This nucleic acid amplification test was developed and its performance characteristics determined by [facility]. Nucleic acid amplification tests include PCR and TMA. This test has not been FDA cleared or approved. This test has been authorized by FDA under an Emergency Use Authorization (EUA). This test is only authorized for the duration of time the declaration that circumstances exist justifying the authorization of the emergency use of in vitro diagnostic tests for detection of SARS-CoV-2 virus and/or diagnosis of COVID-19 infection under section 564(b)(1) of the Act, 21 U.S.C. 360bbb-3(b) (1), unless the authorization is terminated or revoked sooner. When diagnostic testing is negative, the possibility of a false negative result should be considered in the context of a patient's recent exposures and the presence of clinical signs and symptoms consistent with COVID-19. An individual without symptoms of COVID-19 and who is not shedding SARS-CoV-2 virus would expect to have a negative (not detected) result in this assay. Performed at: [employer], [place], [place] [id number] Broom Machine Operator: Lisa Ventura PhD, Phone: [phone] ID Date Data Source [id number] 07/04/2020 11:00:00 AM EST [facility] Name Value Range Interpretation Code Description Data Marilyn rce(s) Supporting Document(s) SARS coronavirus 2 RNA [facility] This lab was ordered by Linda bailey and reported by [facility]. Procedure Social History Code Duration Value Status Description Data Source(s ) Smoking 04/04/2021 12:00:00 AM EDT Never Smoker completed Never S moker eCW1 ([facility]) Smoking 10/05/2020 12:00:00 AM EST Never Smoker completed Never S moker eCW1 ([facility]) Smoking 10/05/2020 12:00:00 AM EST Never Smoker completed Never S moker eCW1 ([facility]) Vital Signs ID Date Data Source UNK Name Value Range Interpretation Code Description Data Source(s) Body weight 57.15 kg 57.15 kg eCW1 ([facility]) Body weight 126 [lb_av] 126 [lb_av] eCW1 ([facility]) Body height 63 [in_i] 63 [in_i] eCW1 ([facility]) Heart rate 72 /min 72 /min eCW1 ([facility]) Systolic blood pressure 122 mm[Hg] 122 mm[Hg] e CW1 ([facility]) Respiratory rate 18 /min 18 /min eCW1 ([facility]) Diastolic blood pressure 64 mm[Hg] 64 mm[Hg] eCW1 ([facility]) Body mass index (BMI) [Ratio] 22.32 kg/m2 22.32 kg/m2 eCW1 ([facility]) Body temperature 97.0 [degF] 97.0 [degF] eCW1 ( [facility]) Body height 63 [in_i] 63 [in_i] eCW1 ([facility]) Body height 160.02 cm 160.02 cm W1 ([facility]) Body weight 124.2 [lb_av] 124.2 [lb_av] eCW1 ([facility]) Body weight 56.34 kg 56.34 kg eCW1 ([facility]) Body mass index (BMI) [Ratio] 22.00 kg/m2 22.00 kg/m2 eCW1 ([facility]) Diastolic blood pressure 50 mm[Hg] 50 mm[Hg] eCW1 ([facility]) Heart rate 75 /min 75 /min eCW1 ([facility]) Oxygen saturation in Arterial blood by Pulse oximetry 97 % 97 % eCW1 ([facility]) Systolic blood pressure 102 mm[Hg] 102 mm[Hg] e CW1 ([facility]) Body weight 120 [lb_av] 120 [lb_av] eCW1 ([facility]) Body height [in_i] eCW1 ([facility]) Body mass index (BMI) [Ratio] 23.43 kg/m2 23.43 kg/m2 eCW1 ([facility]) Heart rate 62 /min 62 /min eCW1 ([facility]) Respiratory rate 17 /min 17 /min eCW1 ([facility]) Body temperature 97.5 [degF] 97.5 [degF] eCW1 ( [facility]) Systolic blood pressure 113 mm[Hg] 113 mm[Hg] e CW1 ([facility]) Diastolic blood pressure 75 mm[Hg] 75 mm[Hg] eCW1 ([facility]) Body weight 120.6 [lb_av] 120.6 [lb_av] eCW1 ([facility]) Body height [in_i] eCW1 ([facility]) Body mass index (BMI) [Ratio] 23.55 kg/m2 23.55 kg/m2 eCW1 ([facility]) Heart rate 103 /min 103 /min eCW1 ([facility]) Respiratory rate 18 /min 18 /min eCW1 ([facility]) Body temperature 97.8 [degF] 97.8 [degF] eCW1 ( [facility]) Systolic blood pressure 118 mm[Hg] 118 mm[Hg] e CW1 ([facility]) Diastolic blood pressure 76 mm[Hg] 76 mm[Hg] eCW1 ([facility]) Body weight 121 [lb_av] 121 [lb_av] eCW1 ([facility]) Body height [in_i] eCW1 ([facility]) Body mass index (BMI) [Ratio] 23.63 kg/m2 23.63 kg/m2 eCW1 ([facility]) Heart rate 68 /min 68 /min eCW1 ([facility]) Respiratory rate 18 /min 18 /min eCW1 ([facility]) Body temperature 97.0 [degF] 97.0 [degF] eCW1 ( [facility]) Systolic blood pressure 113 mm[Hg] 113 mm[Hg] e CW1 ([facility]) Diastolic blood pressure 78 mm[Hg] 78 mm[Hg] eCW1 ([facility]) Body weight 121 [lb_av] 121 [lb_av] eCW1 ([facility]) Body height [in_i] eCW1 ([facility]) Body mass index (BMI) [Ratio] 23.63 kg/m2 23.63 kg/m2 eCW1 ([facility]) Heart rate 75 /min 75 /min eCW1 ([facility]) Body temperature 97.0 [degF] 97.0 [degF] eCW1 ( [facility]) Systolic blood pressure 108 mm[Hg] 108 mm[Hg] e CW1 ([facility]) Diastolic blood pressure 62 mm[Hg] 62 mm[Hg] eCW1 ([facility])
[2021-07-19] MEDS ORDERED: ceFAZolin SOD 2 GM in IV 1 EA IV ONE (13:05)
[2021-07-19] MEDS ORDERED: ACETAMINOPHEN 1000MG 100ML IV BTL (OFIRMEV) (J0131 PER 10MG) As Ordered ONE (13:07)
[2021-07-19] MEDS ORDERED: ONDANSETRON 4MG/2ML VIAL As Ordered ONE (13:07)
[2021-07-19] MEDS ORDERED: dexameTHASONE 4 MG/ML 1ML VIAL (J1100 PER 1MG) As Ordered ONE (13:07)
[2021-07-19] MEDS ORDERED: propofoL 200 MG/20 ML VIAL As Ordered ONE ×3 (13:07→15:32)
[2021-07-19] MEDS ORDERED: LIDOCAINE 2% 100MG/5ML SDV (FOR ANES.) As Ordered ONE (13:07)
[2021-07-19] MEDS ORDERED: MIDAZOLAM INJ 2MG/2ML VIAL (J2250 PER 1MG) As Ordered ONE (13:09)
[2021-07-19] MEDS ORDERED: fentaNYL 100 MCG/2 ML INJECTION (J3010) As Ordered ONE (13:10)
[2021-07-19] MEDS ORDERED: LIDOCAINE 2% 5ML JELLY UROJET As Ordered ONE (14:50)
[2021-07-19] MEDS ORDERED: LIDOCAINE 1% SDV 30ML VIAL As Ordered ONE (14:50)
[2021-07-19] MEDS ORDERED: LIDOCAINE 1% MDV 20ML VIAL As Ordered ONE (15:28)
--- NOTE | 2021-07-19 16:20 | ROOPDOC ---
[facility] Report Of Operation Report of Operation DATE OF PROCEDURE: 07/19/21 PREPROCEDURE DIAGNOSES: Interstitial cystitis with Hunner's ulcerations and pelvic pain POSTPROCEDURE DIAGNOSES: Same and findings of a small vaginal lesion with purulent discharge PROCEDURE PERFORMED: Cystoscopy, hydrodistention, and fulguration. Intravaginal lidocaine injection with 10 cc of 1%. Removal of vaginal lesion SURGEON: Lisa Artis MD ANESTHESIA: MAC ESTIMATED BLOOD LOSS: Approximately 0 mL. COMPLICATIONS: None FINDINGS: Glomerulations and only one Hunner's ulceration was seen today. We filled her bladder to 600 cc. Vaginal lesion seen just right of the urethral meatus which was filled with purulent material and removed SPECIMENS REMOVED: Vaginal lesion PROCEDURE NOTE: Patient is a 31-year-old female with interstitial cystitis and chronic pelvic pain. She had undergone a cystoscopy, hydrodistention, and bladder biopsies with intravaginal lidocaine back on 12/16/2020 and this worked extremely well for her. The biopsies at the time showed denuded epithelium and mild inflammation. This lasted until recently when she started to get symptoms again and she requested a repeat procedure. All options, alternatives, risk, and benefits were discussed and informed consent was obtained. DESCRIPTION OF PROCEDURE: The patient was brought into the operating room. Sequential compression devices were in place and preoperative antibiotics have been given. Anesthesia was given and the patient was placed in the lithotomy position. Careful attention was paid that her pressure points were well padded and protected. She was prepped and draped in usual fashion. Her bladder was emptied and then filled under gravity drainage with normal saline. 600 cc were placed in her bladder and left for 10 minutes. When her bladder was emptied there was significant glomerulations throughout but only one area of Hunner's ulcerations behind the right ureteral orifice this time. This area was fu lgurated. There was no other stones, lesions, or anything else worrisome. There was a lesion seen on the vaginal wall which was excised and it was filled with purulent material. It was sent as a specimen. Next 10 cc of 1% lidocaine was injected in 1 cc increments through the levator ani muscles in the vaginal region. At the conclusion of the procedure a red rubber catheter was placed and a lidocaine slurry of 50 cc of 1% lidocaine with lidocaine jelly was placed in the bladder for postoperative pain. The patient tolerated the procedure well was returned to the recovery room in stable condition. LISA ARTIS MD Jul 19, 2021 16:20
[2021-07-19 16:35] VITALS: BP 118/70
== END 2021-07-19 16:42 | disposition home or self-care (01) ==
LOC: M SDC 11:49
PROVIDERS: ATTEND Specialist
DX: N30.11 Interstitial cystitis (chronic) with hematuria (principal); R10.2 Pelvic and perineal pain; R35.0 Frequency of micturition; N75.0 Cyst of Bartholin's gland; F41.9 Anxiety disorder, unspecified; Z79.899 Other long term (current) drug therapy; Z88.1 Allergy status to other antibiotic agents
CPT/HCPCS: 20552; 52214; 52265; 57135; 81025; 88305; J0131; J0690; J1100; J2250; J2405; J3010

== ENCOUNTER → 2024-05-19 | Outpatient (REF) | payer OTHER ==
[~2024-05-19] MED LIST changes: -LR 1,000 ML IV ONE
[2024-05-19 15:27] LABS: APPEARANCE, URINE CLEAR (CLEAR); BACTERIA, URINE AUTO NEGATIVE (NEGATIVE); BILIRUBIN, URINE AUTO NEGATIVE (NEGATIVE); BLOOD, URINE BLOOD 1+ (NEGATIVE); COLOR, URINE YELLOW (YELLOW); GLUCOSE, URINE (UA) AUTO NEGATIVE (NEGATIVE); KETONE, URINE AUTO NEGATIVE (NEGATIVE); LEUKOCYTE ESTERASE, URINE AUTO NEGATIVE (NEGATIVE); NITRITE, URINE AUTO NEGATIVE (NEGATIVE); PROTEIN, URINE AUTO NEGATIVE (NEGATIVE); RBC, URINE AUTO 4 /HPF (0-3); SPECIFIC GRAVITY URINE AUTO 1.009 (1.002-1.035); SQUAMOUS EPITHELIAL CELL UR AU 1 /HPF (0-6); UROBILINOGEN, URINE AUTO 0.2 mg/dL (0.0-2.0); WBC, URINE AUTO 0 /HPF (0-3)
== END ==
LOC: M SMT 14:50
PROVIDERS: ATTEND Nurse Practitioner Family
DX: N30.10 Interstitial cystitis (chronic) without hematuria (principal)

== ENCOUNTER → 2024-10-27 | Outpatient (REF) | payer OTHER ==
[2024-10-27 18:05] LABS: APPEARANCE, URINE CLEAR (CLEAR); BACTERIA, URINE AUTO NEGATIVE (NEGATIVE); BILIRUBIN, URINE AUTO NEGATIVE (NEGATIVE); BLOOD, URINE BLOOD 2+ (NEGATIVE); COLOR, URINE YELLOW (YELLOW); GLUCOSE, URINE (UA) AUTO NEGATIVE (NEGATIVE); KETONE, URINE AUTO NEGATIVE (NEGATIVE); LEUKOCYTE ESTERASE, URINE AUTO NEGATIVE (NEGATIVE); MUCUS, URINE SMALL (NEGATIVE); NITRITE, URINE AUTO NEGATIVE (NEGATIVE); PROTEIN, URINE AUTO NEGATIVE (NEGATIVE); RBC, URINE AUTO 16 /HPF (0-3); SPECIFIC GRAVITY URINE AUTO 1.024 (1.002-1.035); SQUAMOUS EPITHELIAL CELL UR AU 1 /HPF (0-6); UROBILINOGEN, URINE AUTO 0.2 mg/dL (0.0-2.0); WBC, URINE AUTO 2 /HPF (0-3)
== END ==
LOC: M SMT 17:06
PROVIDERS: ATTEND Nurse Practitioner Family
DX: N30.10 Interstitial cystitis (chronic) without hematuria (principal)